=== PATIENT | male | born 1960 | race Caucasian/White ===

== ENCOUNTER → 2020-05-26 15:32 | Outpatient (BNVA) | payer OTHER, BC, SELFPAY | PROVIDERS: Family Provider Family Medicine; Visit Provider Emergency Medicine | DX: Z20.828 Contact with and (suspected) exposure to other viral communicable diseases (principal) | CPT/HCPCS: 87635 ==

== ENCOUNTER 2021-06-16 17:03 | Outpatient (CLI) | payer OTHER, SELFPAY ==
[2021-06-16 17:54] LABS: Basophils # 0.1 10^3/uL (0.0-0.1); Basophils % 0.7 %; Eosinophils # 0.3 10^3/uL (0.0-0.8); Eosinophils % 3.3 %; Hematocrit 46.1 % (42.0-52.0); Hemoglobin 15.5 g/dL (11.7-16.6); Lymphocytes # 2.8 10^3/uL (0.8-4.8); Lymphocytes % 32.9 %; Mean Corpuscular HGB Conc 33.6 g/dL (30.0-36.0); Mean Corpuscular Hemoglobin 29.1 pg (28.0-34.0); Mean Corpuscular Volume 86.7 fl (80-94); Mean Platelet Volume 9.2 fL (7.4-10.4); Monocytes # 0.7 10^3/uL (0.2-0.9); Monocytes % 8.5 %; Neutrophils # 4.65 10^3/uL (1.8-7.7); Neutrophils % 54.5 %; Nucleated Red Blood Cells % 0 %; Platelet Count 280 10^3/cmm (130-400); Red Blood Count 5.32 10^6/uL (4.1-5.3); White Blood Count 8.5 10^3/uL (4.0-10.0)
[2021-06-16 18:14] LABS: Alanine Aminotransferase 21 U/L (0-41); Albumin Level 4.6 g/dL (3.5-5.2); Alkaline Phosphatase 92 IU/L (40-130); Anion Gap 14.9 (5-19); Aspartate Amino Transferase 24 U/L (0-40); Blood Urea Nitrogen 21 mg/dL (6-20); Calcium 9.7 mg/dL (8.5-10.5); Carbon Dioxide 27 mmol/L (22-29); Chloride 102 mmol/L (98-107); Globulin 3.2 g/dL (1.3-4.6); Glomerular Filtration Rate 76.5 mL/min (90-130); Glucose 90 mg/dL (65-115); Osmolality Calculated 293 mOsm/kg (285-295); Potassium 3.9 mmol/L (3.5-5.1); Sodium 140 mmol/L (136-145); Total Bilirubin 0.4 mg/dL (0.15-1.2); Total Protein 7.8 g/dL (6.6-8.7)
== END 2021-06-16 17:04 | disposition home or self-care (01) ==
PROVIDERS: PCP Family Medicine; Visit Provider Surgery
DX: R10.10 Upper abdominal pain, unspecified (principal)
CPT/HCPCS: 80053; 85025

== ENCOUNTER 2021-07-29 06:56 | Outpatient (CLI) | payer OTHER, SELFPAY ==
--- NOTE | 2021-07-29 07:15 | US_ITS ---
WS: [id number] RIGHT UPPER QUADRANT ULTRASOUND HISTORY: R10.10 - Upper abdominal pain, unspecified COMPARISON: None available. Liver: 12.5 cm in length. Normal size liver. No bile duct dilatation or mass. Portal Vein: Normal hepatopetal flow with monophasic waveform. Gallbladder: Mildly distended gallbladder. Numerous stones are present within the gallbladder lumen. Largest stone measures 2.1 cm. No wall thickening. No pericholecystic fluid. Transverse diameter of t he gallbladder is just over 4 cm. CBD: 0.3 cm Pancreas: Heart of the pancreas is obscured by bowel gas. The body is normal. Right kidney: 10.2 cm in length. Normal size kidney. No hydronephrosis or solid mass. There is a ronald ical cyst lower pole measuring 1.1 x 0.9 x 1.0 cm. Aorta and IVC: Unremarkable abdominal aorta and IVC. No ascites. US/US liver [id number] IMPRESSION: 1. Cholelithiasis and mildly hydropic gallbladder. Numerous stones are present in the gallbladder lumen. No wall thickening or pericholecystic fluid. 2. No common bile duct dilatation.
== END 2021-07-29 06:57 | disposition home or self-care (01) ==
LOC: RAD 06:56
PROVIDERS: PCP Family Medicine; Visit Provider Surgery
DX: R10.10 Upper abdominal pain, unspecified (principal); K80.20 Calculus of gallbladder without cholecystitis without obstruction
CPT/HCPCS: 76705

== ENCOUNTER 2021-08-22 05:53 | Day surgery (SDC) | payer OTHER, SELFPAY ==
[2021-08-19 10:42] VITALS: BMI 23.7
[2021-08-22] VITALS (12 sets, daily range): BP systolic 78–127; BP diastolic 44–84; PULSE 55–77; RESP 14–18; TEMP 36.1–36.7; O2SAT 95–99
--- NOTE | 2021-08-22 06:25 | W.PM.OPSUD ---
Surgery/Procedure H&P Update DATE OF PROCEDURE: August 22, 2021 DATE H&P PERFORMED: 08/04/21 H&P UPDATE INFORMATION: I have reviewed H&P completed within last 30 days, I have examined patient prior to procedure and No changes to prior documentation PREOP DIAGNOSIS: Symptomatic cholelithiasis PRIMARY INDICATION FOR PROCEDURE: The same PLANNED PROCEDURE: Operation Date: 08/22/21 07:00 Proposed Procedures p Laparoscopic Cholecystectomy [id number] /(Not Applicable) - Delroy Ramirez MD
[2021-08-22] MEDS: acetaminophen 1,000 MG/100 ML PIGGYBACK 400 MG IV (06:31)
[2021-08-22] MEDS: sodium chloride 0.9% 1,000 ML 30 ML IV (06:31)
--- NOTE | 2021-08-22 06:41 | ANES.PREANE2 ---
Pre-Anesthetic Assessment Height/Weight: Height 1.83 m Weight 79.379 kg Temp Pulse Resp BP Pulse Ox 98.0 F 61 17 127/84 99 08/22/21 06:13 08/22/21 06:13 08/22/21 06:13 08/22/21 06:13 08/22/21 06:13 Preop Diagnosis: Symptomatic cholelithiasis Operation Date: 08/22/21 07:00 Proposed Procedures p Laparoscopic Cholecystectomy [id number] /(Not Applicable) - Delroy Ramirez MD Familial anesthetic complications: None Was Beta Kelvin taken within 24 hours: N/A Was Clonidine taken within 24 hours: N/A Last intake: Intake Last Liquid Date 08/21/21 Last Liquid Time 21:00 Last Solid Date 08/21/21 Last Solid Time 21:00 Social No alcohol and No tobacco Exam alert, oriented x 3, clear to auscultation bilaterally and regular rate & rhythm Airway Mallampati: Class II Dentition: full Pulmonary None reported CV/HEM None reported None reported Hepatic None reported GI None reported Metabolic None reported Musc/skel None reported Neuropsych None reported Anesthetic Plan ASA status: 1 Anesthesia: General Risk of > 500 ml blood loss (7ml/kg in children): No Medications/Allergies Home Medications Medication Instructions Recorded Confirmed Last Taken Type No Known Home Medications 05/26/20 08/04/21 Unknown History Allergies Allergy/AdvReac Type Severity Reaction Status Date / Time Penicillins Allergy ALGY-Anaphy Verified 08/22/21 06:14 laxis Current Medications Generic Name Dose Route Start Last Admin Trade Name Freq PRN Reason Stop Dose Admin Sodium Chloride 1,000 mls @ 30 mls/hr 08/22/21 06:15 08/22/21 06:31 Sodium Chloride 0.9% IV 08/23/21 06:14 30 mls/hr .Q24H TONIA Administration PFSH Anesthesia Family History Other CAD (coronary artery disease) Cancer Diabetes Stroke Denies family history of Dementia Chronic kidney disease (CKD) Social History Smoking and tobacco status: never smoked Alcohol intake: never Lives independently: Yes Household members: spouse Marital status: Data Anesthesia Cardiac Studies: No Data to Display
[2021-08-22] MEDS: ciprofloxacin 400 MG/200 ML PREMIX 200 MG IV (06:52)
[2021-08-22] MEDS: lidocaine 2% INJ 20 mL INJECTION (07:21)
--- NOTE | 2021-08-22 08:30 | P.OP_ITS ---
Operative Report Date of procedure: August 22, 2021 Pre-op diagnosis: Preop Diagnosis Symptomatic cholelithiasis Post-op diagnosis: Chronic calculus cholecystitis with adhesions Procedure done: Laparoscopic cholecystectomy Implants: Pieces of Surgicel at the gallbladder fossa Specimens removed/disposition: Gallbladder and contents Surgeon: Delroy Ramirez MD Vice President Of Talent Management: Surgical richard [place] Circulating nurse Darline Anesthesia: General ([employer]) Estimated blood loss (mL): 25 IV fluids (mL): 1,300 Procedure: Patient was identified in the holding area and taken back to the operative suite, placed in supine position intubated by anesthesia . Time-out was done verifying the patient's name/date of /planned procedure and destination after the procedure, all were in agreement. SCDs confirmed to be functioning, preoperative antibiotics administered per protocol, and beta jessie protocol was confirmed. Patient was appropriately secured to the table, footboard was applied to the OR table, before prep and drape anesthesia was asked to tilt the table back and forth to make sure that the patient is appropriately secured and she was. Prep and drape of the abdomen was done under the usual sterile technique, followed by that supraumbilical skin incision,skin incision was done by a 15 blade knife, and stay sutures were applied to the fascia and Ariza trocar technique was used to enter the abdominal without injuring any abdominal viscera, started by low flow gas insufflation followed by a high flow, started with a 10 mm laparoscope and under direct vision there was no evidence of any injuries, the scope then switched to a 30? ,10 millimeter scope and under direct visualization 5 millimeter trocar was inserted in the epigastric region followed by two 5 mm trocars were inserted in the right upper quadrant that was done after injection of local lidocaine 2% at all incision sites. Gallbladder showed chronic cholecystitis and Fatty Liver, also omental adhesions encasing the gallbladder and adherent to the transverse colon. Patient was then positioned in the head up and tilted to the left. Ratcheted forceps were introduced into the lateral most 5mm port and was applied unto the fundus of the gallbladder cephalad and using Bullet forceps the infundibulum of the gallbladder was retracted laterally. Appropriate time was taken using sharp and blunt dissection to take all the adhesions down and separate the omental adhesions from the gallbladder as well as from the transverse colon without violating any structures and also adhesions were encountered towards the junction of the first and second part of the duodenum all this was sharply dissected. Using [place] forceps then L-hook cautery to dissect the peritoneum overlying the Calot's triangle which was then opened medially and laterally until the cystic duct and the cystic artery were skeletonized. Dissection was carried along the body of the gallbladder and after ensuring critical view of safety was identfied. Cystic duct and cystic artery where seen connected to the gallbladder. Clips were applied on the cystic duct towards the common bile duct 1 towards the gallbladder then divided is in sharp scissors, 2 clips were then applied onto the cystic artery and 1 towards the gallbladder and divided by sharp scissors. Additional traversing vessel was clipped and divided. Dissection was then carried along of the gallbladder from the gallbladder fossa using cautery as well as sharp dissection with heat energy. The gallbladder then was dissected out from the gallbladder fossa totally , cholecystectomy was then achieved and was placed in an Endo Catch bag and then retrieved from the Ariza trocar site under direct visualization using a 5 mm 30? scope through the epigastric trocar, specimen was then passed to the circulating nurse to go for permanent pathology,irrigation and hemostasis was done to the gallbladder fossa after hemostasis was secured and finalized by placement of pieces of Surgicel at the gallbladder fossa. Final survey laparoscopy was done that showed no injuries. Suction irrigation was obtained and also I did not see any bubbles from any of the visceral structures to indicate perforations. The supraumbilical fascial defect was then closed using interrupted number one PDS sutures using a fascial closure device ;Jethro Kelley under direct visualization following that Gas was allowed to deflate,Trocars were then taken out under direct vision there was no evidence of bleeding. Specimen was passed to the circulating nurse for permanent pathology. No drains were placed and the supraumbilical incision as well as all trocar sites were closed by 3/0 Vicryl followed by skin josep to approximate the skin edges of the incisions , dressing was applied in the form of band aids and the patient patient got extubated and was taken to recovery area in a stable condition. Count of sponges,needles and instruments were completed at the end of the procedure I was present for the whole entire procedure.
[2021-08-22] MEDS: fentaNYL 50 mcg/mL INJ 2mL IVP (09:06)
[2021-08-22] MEDS: HYDROcodone-acetaminophen 5-325 mg Tablet 1 TAB PO (10:07)
--- NOTE | 2021-08-22 13:21 | ANE.PACU2 ---
Inpatient post-anesthesia follow up: Airway intact: Yes Vital signs: Temperature 97.0 F Pulse Rate 69 Respiratory Rate 18 Blood Pressure 112/70 Pulse Oximetry 97 Oxygen Delivery Me thod Room Air Oxygen Flow Rate 6 Fraction of Inspir ed Oxygen Hydration adequate: Yes Nausea and vomiting: No Pain level: 2 Mental status: Baseline
== END 2021-08-22 10:27 | disposition home or self-care (01) ==
PROVIDERS: PCP Family Medicine; Visit Provider Surgery
PROC: 0FT44ZZ Resection of Gallbladder, Percutaneous Endoscopic Approach (ICD-10-PCS; CPT 47562; principal; 2021-08-22 07:00)
DX: K80.10 Calculus of gallbladder with chronic cholecystitis without obstruction (principal); Z82.49 Family history of ischemic heart disease and other diseases of the circulatory system; Z83.3 Family history of diabetes mellitus; Z82.3 Family history of stroke
CPT/HCPCS: 47562; 88304; J0744; J1100; J1170; J2405; J2704; J2710; J3010; J3490; J7030

== ENCOUNTER → 2023-11-12 15:31 | Outpatient (BNVA) | payer OTHER, SELFPAY | PROVIDERS: PCP Family Medicine; Visit Provider Family Medicine | DX: Z00.00 Encounter for general adult medical examination without abnormal findings (principal); Z12.5 Encounter for screening for malignant neoplasm of prostate | CPT/HCPCS: G0103 ==

== ENCOUNTER 2024-01-17 09:39 | Day surgery (SDC) | payer OTHER, SELFPAY ==
[2024-01-17 09:46] VITALS: BP 129/87; PULSE 60; RESP 18; TEMP 36.1; O2SAT 99
[2024-01-17 09:51] VITALS: BMI 24.7
[2024-01-17] MEDS: sodium chloride 0.9% 1,000 ML 30 ML IV (09:57)
--- NOTE | 2024-01-17 09:58 | ANES.PREANE2 ---
Pre-Anesthetic Assessment Height/Weight: Height 1.83 m Weight 82.554 kg Temp Pulse Resp BP Pulse Ox O2 Del Method 97.0 F L 60 18 129/87 99 Room Air 01/17/24 09:46 01/17/24 09:46 01/17/24 09:46 01/17/24 09:46 01/17/24 09:46 01/17/24 09:46 Operation Date: 01/17/24 11:00 Proposed Procedures p Colonoscopy / 78445, G0105, Z12.11(Not Applicable) - Juliano Valdez MD Familial anesthetic complications: None Was Beta Kelvin taken within 24 hours: N/A Was Clonidine taken within 24 hours: N/A Last intake: Intake Last Liquid Date 01/16/24 Last Liquid Time 22:00 Last Solid Date 01/15/24 Last Solid Time 17:00 Social No alcohol and No tobacco Exam alert, oriented x 3, clear to auscultation bilaterally and regular rate & rhythm Airway Mallampati: Class I Dentition: full Anesthetic Plan ASA status: 1 Anesthesia: MAC Medications/Allergies Home Medications Medication Instructions Recorded Confirmed Last Taken Type No Known Home Medications 05/26/20 01/17/24 Unknown History Allergies Allergy/AdvReac Type Severity Reaction Status Date / Time Penicillins Allergy ALGY-Anaphy Verified 01/17/24 09:49 laxis Current Medications Generic Name Dose Route Start Last Admin Trade Name Freq PRN Reason Stop Dose Admin Sodium Chloride 1,000 mls @ 30 mls/hr 01/17/24 10:00 01/17/24 09:57 Sodium Chloride 0.9% IV 30 mls/hr .Q24H TONIA Administration PFSH Anesthesia Medical History RUQ abdominal pain Family History Mother CAD (coronary artery disease) Cancer Daughter Diabetes Denies family history of Clotting disorder Dementia Hyperlipidemia Psychiatric illness Chronic kidney disease (CKD) Suicide Family history of premature coronary artery disease Hypertension Stroke Social History Smoking and tobacco/nicotine status: never used tobacco/nicotine Second hand smoke exposure: No Alcohol intake: never Substance/Drug Use: never Adopted: No Caregiver/support person: No Lives independently: Yes Household members: spouse Housing: House Marital status: service: Yes Current occupational status: retired Current occupational exposures/hazards: Yes (farming) Pets and animals: No Do you think of yourself as: Straight/Heterosexual Current gender identity: Male Data Anesthesia Cardiac Studies: No Data to Display
--- NOTE | 2024-01-17 10:06 | W.PM.OPSFHP ---
Same Day Surgery H&P Indication for Procedure/HPI DATE OF PROCEDURE: January 17, 2024 CHIEF COMPLAINT/INDICATIONFOR SURGICAL PROCEDURE: need for screening colonoscopy PREOP DIAGNOSIS: need for screening colonoscopy PLANNED PROCEDURE: Operation Date: 01/17/24 11:00 Proposed Procedures p Colonoscopy / 54833, G0105, Z12.11(Not Applicable) - Juliano Valdez MD Medications/Allergies* Home Medications Medication Instructions Recorded Confirmed Type No Known Home Medications 05/26/20 01/17/24 History Allergies/Adverse Reactions Allergy/AdvReac Type Severity Reaction Status Date / Time Penicillins Allergy ALGY-Anaphy Verified 01/17/24 09:49 laxis Current Medications: Generic Name Dose Route Start Last Admin Trade Name Freq PRN Reason Stop Dose Admin Sodium Chloride 1,000 mls @ 30 mls/hr 01/17/24 10:00 01/17/24 09:57 Sodium Chloride 0.9% IV 30 mls/hr .Q24H TONIA Administration Pertinent History/Comorbid Conditions* Medical History (Updated 11/12/23 @ 15:24 by Kenan Orlando DO) RUQ abdominal pain Family History (Updated 11/27/22 @ 08:15 by Anila Bhakta LPN) Diabetes Daughter CAD (coronary artery disease) Mother Cancer Mother Denies family history of Clotting disorder Dementia Hyperlipidemia Psychiatric illness Chronic kidney disease (CKD) Suicide Family history of premature coronary artery disease Hypertension Stroke Social History Smoking and tobacco/nicotine status: never used tobacco/nicotine Second hand smoke exposure: No Alcohol intake: never Substance/Drug Use: never Adopted: No Caregiver/support person: No Lives independently: Yes Household members: spouse Housing: House Marital status: service: Yes Current occupational status: retired Current occupational exposures/hazards: Yes (farming) Pets and animals: No Do you think of yourself as: Straight/Heterosexual Current gender identity: Male Pertinent Exam Findings alert, oriented x 3 and clear to auscultation bilaterally Recommendations Surgery/Procedure today Coding Level of Care Code Acute Code for Chg Fwd
[2024-01-17 10:56] VITALS: BP 109/72; PULSE 81; RESP 16; TEMP 36.4; O2SAT 92
[2024-01-17 11:08] VITALS: BP 101/80; PULSE 70; RESP 16; O2SAT 94
[2024-01-17 11:47] VITALS: BP 108/81; PULSE 62; RESP 18; O2SAT 99
--- NOTE | 2024-01-17 11:55 | ANE.PACU2 ---
Inpatient post-anesthesia follow up: Airway intact: Yes Vital signs: Temperature 97.6 F Pulse Rate 62 Respiratory Rate 18 Blood Pressure 108/81 Pulse Oximetry 99 Oxygen Delivery Me thod Room Air Oxygen Flow Rate 3 Fraction of Inspir ed Oxygen Hydration adequate: Yes Nausea and vomiting: No Pain level: 1 Mental status: Baseline
== END 2024-01-17 11:57 | disposition home or self-care (01) ==
PROVIDERS: PCP Family Medicine; Visit Provider Surgery
PROC: 0DJD8ZZ Inspection of Lower Intestinal Tract, Via Natural or Artificial Opening Endoscopic (ICD-10-PCS; CPT 45378; principal; 2024-01-17 11:00)
DX: Z12.11 Encounter for screening for malignant neoplasm of colon (principal); K57.30 Diverticulosis of large intestine without perforation or abscess without bleeding
CPT/HCPCS: 45378; J2704; J7030